=== PATIENT | female | born 2000 | race Caucasian/White ===

== ENCOUNTER 2020-02-12 16:56 | Emergency (ER) | payer MEDICAID, SELFPAY ==
[2020-02-12 16:57] VITALS: BP 159/93; PULSE 121; RESP 20; TEMP 36.9; O2SAT 95; BMI 38.2
[2020-02-12] MEDS: Albuterol 2.5 MG/3 ML VIAL.NEB. INHALATION (17:14)
[2020-02-12] MEDS: Ipratropium/Albuterol Sulfate 3 ML AMPUL.NEB INHALATION (17:14)
[2020-02-12 17:16] VITALS: PULSE 125; RESP 18
[2020-02-12] MEDS: predniSONE 20 MG Tablet 60 MG PO (17:16)
--- NOTE | 2020-02-12 17:22 | ED.VIS.GEN ---
History of Present Illness Chief Complaint: Asthma Informant: Patient Onset: Today Current Severity: Mild Maximum Severity: Moderate Narrative: Patient presents with asthma exacerbation. She states she was out in a field approximately 30 minutes prior to arrival and felt her lungs start to tighten and get wheezy. She did take a Tums. She states her asthma has been under very good control and her rescue inhalers are currently out of date. She denies fever or significant cough. - Past Medical History (1) Asthma Status: Chronic (2) Anxiety Status: Chronic Past Medical History - Allergies and Home Meds Allergies/Adverse Reactions: Allergies No Known Allergies Allergy (Verified 02/12/20 16:57) Primary Care Physician: Delta Gu MD [Primary Care Provider] - Prior records reviewed: Yes Smoking Status: Current every day smoker Review of Systems General: Denies: Chills, Fever Eyes: Denies: Visual changes - bilaterally ENT: Denies: Bilateral ear pain Cardiovascular: Reports: Chest pain - Lungs feel tight Respiratory: Reports: Dyspnea. Denies: Cough Gastrointestinal: Denies: Abdominal pain, Nausea, Vomiting, Diarrhea Musculoskeletal: Denies: Myalgias, Extremity Pain Skin: Denies: Rash Neurological: Denies: Headache Hematologic: Denies: Easy bruising, Easy bleeding Allergy: Denies: Uticaria Physical Exam Vital Signs/Narrative: Vital Signs Temp Pulse Resp BP Pulse Ox 02/12/20 17:16 111 H 18 02/12/20 16:57 98.4 F 121 H 20 H 159/93 H 95 Inital Vital Signs reviewed: Yes General: Well nourished, Well developed Head: Normocephalic ENT: Moist mucous membranes Neck: Supple Cardiovascular: Regular rhythm, Tachycardia Respiratory: - - Lung sounds slightly diminished. Expiratory wheezes noted worse in the right upper lobe. Abdomen: Soft, Nontender Extremities: Nontender Skin: Normal color Neurological: Alert, Oriented x3 Psychological: Normal affect Diagnostic/Tx/Re-eval - Medical Decision Making Patient was given a DuoNeb treatment followed by a single albuterol treatment. She was given 60 mg of p.o. prednisone. On repeat evaluation she reports feeling significantly improved. Lung sounds are clear. She will be given 4 additional days of steroids and a prescription for a new inhaler. ED Disposition - Plan for ED Patient: Disposition: Home or Assisted Living Diagnosis: Asthma exacerbation Instructions: ED REACTIVE AIRWAY DISEASE Adult Prescriptions: Prednisone [Deltasone] 40 mg PO DAILY #8 tab Transmission Status: Pending to [place] [id number] Albuterol Inhaler [Ventolin Hfa] 1 - 2 puff INHALATION Q4H PRN PRN #1 inhaler PRN Reason: Wheezing Transmission Status: Pending to [place] [id number] Referrals: Delta Gu MD [Primary Care Provider] - 3-5 Days if not improving
[2020-02-12 17:53] VITALS: PULSE 121; O2SAT 97
== END 2020-02-12 17:53 | disposition home or self-care (01) ==
PROVIDERS: Emergency Provider Emergency Medicine; PCP Family Medicine
DX: J45.901 Unspecified asthma with (acute) exacerbation (principal); F17.200 Nicotine dependence, unspecified, uncomplicated
CPT/HCPCS: 94640; 99283

== ENCOUNTER 2020-03-19 08:45 | Emergency (ER) | payer MEDICAID, SELFPAY ==
[2020-03-19 08:47] VITALS: BP 136/84; PULSE 112; RESP 16; TEMP 36.6; O2SAT 95; BMI 31.8
--- NOTE | 2020-03-19 09:01 | ED.DCSUM_ITS ---
History of Present Illness Chief Complaint: Bite Informant: Patient Onset: Today Current Severity: Moderate Maximum Severity: Moderate Narrative: Patient presents with multiple cat bites and scratches to her right upper e xtremity. Patient states she was trying to take a friend's cat to the vet when the cat bit and scratched her. She has numerous abrasions and bite diane on the right arm and one on the left hand, fifth finger. She believes the cat has had regular veterinary care. - Past Medical History (1) Anxiety Status: Chronic (2) Asthma Status: Chronic Past Medical History - Allergies and Home Meds Allergies/Adverse Reactions: Allergies No Known Allergies Allergy (Verified 03/19/20 08:47) Primary Care Physician: Delta Gu MD [Primary Care Provider] - Prior records reviewed: Yes Smoking Status: Current every day smoker Review of Systems General: Denies: Chills, Fever Eyes: Denies: Visual changes - bilaterally ENT: Denies: Bilateral ear pain Cardiovascular: Denies: Chest pain Respiratory: Denies: Dyspnea Gastrointestinal: Denies: Abdominal pain Musculoskeletal: Reports: Extremity Pain Skin: Reports: Abrasions, Wounds Neurological: Denies: Headache, Parasthesia Hematologic: Denies: Easy bruising, Easy bleeding Allergy: Denies: Uticaria Physical Exam Vital Signs/Narrative: Vital Signs Temp Pulse Resp BP Pulse Ox 03/19/20 08:47 97.9 F 112 H 16 136/84 H 95 Inital Vital Signs reviewed: Yes General: Well nourished, Well developed Head: Normocephalic ENT: Moist mucous membranes Cardiovascular: Regular rate, Regular rhythm Respiratory: No distress, CTA bilaterally Abdomen: Soft, Nontender Extremities: - - Patient has numerous linear abrasions and bite diane to the right forearm and distal upper arm. No significant active bleeding. There is a 3 cm linear abrasion on the left fifth finger. Neurovascular examination is normal. Neurological: Alert, Oriented x3, Normal Strength, Normal Sensation Psychological: Normal affect Diagnostic/Tx/Re-eval - Medical Decision Making Wound will be cleansed and dressed at this time. Patient be treated with a course of Augmentin, first dose given here. She is given wound care instructions. ED Disposition - Plan for ED Patient: Disposition: Home or Assisted Living Diagnosis: Cat bite Instructions: ED Bite Cat Prescriptions: Amox/Clavulanate Tablet [Augmentin Tablet] 875 mg PO Q12H #20 tab Transmission Status: Pending to [facility] - [place] - [id number] Referrals: Delta Gu MD [Primary Care Provider] - 1-2 Weeks
[2020-03-19] MEDS: Amox/Clavulanate 875 MG Tablet PO (09:05)
== END 2020-03-19 09:14 | disposition home or self-care (01) ==
LOC: ED 09:12
PROVIDERS: Emergency Provider Emergency Medicine; PCP Family Medicine
DX: S51.851A Open bite of right forearm, initial encounter (principal); S41.151A Open bite of right upper arm, initial encounter; S61.257A Open bite of left little finger without damage to nail, initial encounter; F17.200 Nicotine dependence, unspecified, uncomplicated; F41.9 Anxiety disorder, unspecified; J45.909 Unspecified asthma, uncomplicated; Z79.51 Long term (current) use of inhaled steroids; Z79.899 Other long term (current) drug therapy; W55.01XA Bitten by cat, initial encounter; Y93.89 Activity, other specified; Y92.89 Other specified places as the place of occurrence of the external cause; Y99.8 Other external cause status
CPT/HCPCS: 99282

== ENCOUNTER 2020-06-15 15:59 | Emergency (ER) | payer MEDICAID, SELFPAY ==
[2020-06-15 16:00] VITALS: BP 138/86; PULSE 97; RESP 17; TEMP 36.2; O2SAT 98; BMI 38.0
--- NOTE | 2020-06-15 16:10 | ED.DCSUM_ITS ---
- ER Visit Summary Date of Service: 06/15/20 Chief Complaint: [Back pain] History of Present Illness: The patient is a 19 F [presents to the emergency department complaint of back pain for the last 2 weeks. Patient denies any trauma. Patient states that she has frequent discomfort in her back related to knots in her back. Patient denies any pain rating down her legs. She denies weakness in extremities. She denies any change in bowel or bladder function. She denies urinary symptoms. She is had no fever. Patient worse with movement.] Physical Examination: [HEENT-PERRLA, EOMI. Cranial nerves II through XII grossly intact. TMs clear. Mucous membranes moist. No adenopathy. Cardiovascular-regular rate and rhythm without murmur or ectopy Lungs-clear to auscultation, chest wall stable without crepitus or subcu emphysema Abdomen-normoactive bowel sounds, soft, nontender, no rebound or rigidity, no peritoneal signs. Back exam-patient has diffuse tenderness over the lumbar paraspinal musculature bilaterally. Patient also has tenderness over the lumbar spine diffusely. Deep tendon reflexes are plus 2 out of 4 bilaterally at the patella and Achilles. Patient has normal L5 extension bilaterally. Patient has normal sensation to light touch. Extremities-intact ?4, normal range of motion, normal pulses, atraumatic] Test Results: [X-rays of lumbar spine obtained were normal.] Emergency Department Course and Treatment: [] Treatment Plan: [We will be given a prescription for Naprosyn, Flexeril, and a few [place] for severe pain. She is referred to her primary care physician for follow-up in 4 to 5 days.] Disposition: [Discharged home in stable condition] Impression: [Atraumatic back pain] This note was generated with [employer] dictation software. It may contain incorrect words, spelling, and punctuation that were not noted in review of the chart prior to signing ED Disposition - Plan for ED Patient: Referrals: Delta Gu MD [Primary Care Provider] -
--- NOTE | 2020-06-15 16:10 | RAD_ITS ---
STUDY: X-RAY - LUMBAR SPINE REASON FOR EXAM: Female, 19 years old. LOWER BACK PAIN X 2 WEEKS. NKI. WORSE WITH MOVEMENT. TECHNIQUE: 3 view(s) of the lumbar spine were obtained. COMPARISON: None FINDINGS: Normal lumbar lordosis. There is no substantial scoliosis. There is a normal alignment of the vertebrae. Normal vertebral bodies and endplates. Normal disc space heights. The soft tissue structures are unremarkable. RAD/Lumbar Spine 2 or 3 Views IMPRESSION: Normal x-ray examination of the lumbar spine. Electronically Signed: Fredis Gupta MD at 16:31 EDT , Service support ,
--- NOTE | 2020-06-15 16:12 | DCINST.ED_ITS ---
ED Disposition - Plan for ED Patient: Instructions: ED Spasm Back No Trauma Prescriptions: cycloBENZAPRine HCl [Flexeril] 10 mg PO TID PRN #20 tab PRN Reason: Muscle Spasm Prescription Printed Naproxen [Naprosyn] 500 mg PO BID PRN #20 tab Prescription Printed Hydrocodone Bitart/Apap 5-325 [[place] 5MG-325MG] 1 tab PO Q4H PRN PRN 2 Days #14 tab PRN Reason: Pain Prescription Printed Referrals: Delta Gu MD [Primary Care Provider] - 3-5 Days
[2020-06-15] MEDS: HYDROcodone Bitartrate/Apap 5/325 Tablet PO (16:42)
== END 2020-06-15 16:46 | disposition home or self-care (01) ==
PROVIDERS: Emergency Provider Emergency Medicine; PCP Family Medicine
DX: M54.5 Low back pain (principal)
CPT/HCPCS: 72100; 99283

== ENCOUNTER 2020-08-07 16:27 | Emergency (ER) | payer MEDICAID, SELFPAY ==
[2020-08-07 16:28] VITALS: BP 112/81; PULSE 118; RESP 16; TEMP 36.4; O2SAT 98; BMI 37.3
--- NOTE | 2020-08-07 17:30 | ED.DCSUM_ITS ---
History of Present Illness Chief Complaint: Sore Throat Informant: Patient Narrative: Patient is a 20-year-old female who presents to the emergency department for sore throat. She has had some swelling underneath her tongue and soreness there. She states that her sore throat is improving. Her initial symptoms started 1 week ago. She was concerned because her mom felt her throat and they felt that it was swollen. He has been able to swallow without issue. She been eating and drinking well. She denies any significant change in her voice. No fevers or chills. He has not been taking anything for this. Touching the area does make the pain worse. She currently rates it as moderate. No chest pain or shortness of breath. No cough. She denies any nausea/vomiting or diarrhea. No ear pain. She has had some mild headaches intermittently. No neck stiffness or rashes. She was seen a few days prior and had a negative strep test as well as a negative coronavirus swab. She went to urgent care today who told her they could not do anything for her. Past Medical History - Allergies and Home Meds Allergies/Adverse Reactions: Allergies No Known Allergies Allergy (Verified 08/07/20 16:28) Primary Care Physician: Delta Gu MD [Primary Care Provider] - 3-5 Days Prior records reviewed: Yes Smoking Status: Current every day smoker Review of Systems General: Denies: Chills, Fever, Sweats Eyes: Denies: Visual changes - bilaterally, Diplopia ENT: Reports: Sore throat. Denies: Left ear pain, Right ear pain, Rhinorrhea Cardiovascular: Denies: Chest pain, Palpitations Respiratory: Denies: Dyspnea, Cough, Dyspnea on exertion Gastrointestinal: Denies: Abdominal pain, Nausea, Vomiting, Diarrhea Genitourinary: Denies: Dysuria, Hematuria, Frequency Musculoskeletal: Denies: Back pain, Extremity Pain Skin: Denies: Rash, Wounds Neurological: Denies: Headache, Weakness, Numbness Physical Exam Vital Signs/Narrative: Vital Signs Temp Pulse Resp BP Pulse Ox 08/07/20 16:28 97.5 F L 118 H 16 112/81 H 98 Inital Vital Signs reviewed: Yes General: Well nourished, Well developed, No Acute Distress Head: Normocephalic, Atraumatic Eyes: Perrl, EOMI ENT: Moist mucous membranes, No rhinorrhea, TM's clear, - - No tonsillar exudates. No significant oral pharyngeal erythema. Uvula is midline. No appreciable abscess. Neck: Supple, - - Tenderness submandibular area bilaterally. No evidence of Onel's angina. Cervical lymphadenopathy present bilaterally. Cardiovascular: Regular rate, Regular rhythm, No murmurs Respiratory: No distress, CTA bilaterally, Chest nontender Abdomen: Soft, Nontender, Nondistended, Normal bowel sounds Back: Nontender, Normal Inspection Extremities: Nontender, No edema Skin: Normal color, No rash Neurological: Alert, Oriented x3, Cranial nerves II-XII grossly intact, Normal Strength, Normal Sensation Psychological: Normal affect, Normal Mood Diagnostic/Tx/Re-eval - Medical Decision Making Patient presents to the ED for tenderness and swelling under her jaw. She is getting over a sore throat currently. This is improving. No airway compromise on physical exam. No significant swelling. No evidence of Onel's angina. No evidence of infection except for some lymphadenopathy. Will recommend symptomatic treatment with Tylenol and ibuprofen. If this continues to get worse of the swelling becomes significant she is to return to the emerge depa rtment immediately. She understands and is agreeable this plan. She is to follow-up with her PCP. Warning signs and symptoms for which to return to the ED are reviewed with her. She understands and is agreeable with this plan. ED Disposition - Plan for ED Patient: Disposition: Home or Assisted Living Diagnosis: Pharyngitis Instructions: ED Pharyngitis Viral Referrals: Delta Gu MD [Primary Care Provider] - 3-5 Days
== END 2020-08-07 17:34 | disposition home or self-care (01) ==
LOC: ED 17:33
PROVIDERS: Emergency Provider Emergency Medicine
DX: J02.9 Acute pharyngitis, unspecified (principal); F17.200 Nicotine dependence, unspecified, uncomplicated
CPT/HCPCS: 99282

== ENCOUNTER → 2023-02-08 | Outpatient (CLI) | payer MEDICAID, SELFPAY ==
--- NOTE | 2023-02-08 12:30 | EKG12_ITS ---
Test Reason : Blood Pressure : / mmHG Vent. Rate : 107 BPM Atrial Rate : 107 BPM P-R Int : 118 ms QRS Dur : 080 ms QT Int : 352 ms P-R-T Axes : 053 144 029 degrees QTc Int : 469 ms Sinus tachycardia Otherwise normal ECG Confirmed by ROBERT RODRIGUES, ELLI ([id number]), editor school photograph YOUNG JIMENES ([id number]) on 02/09/2023 11:40:08 A M Referred By: Lisa Cote Confirmed By:JUDY JONES MD
[2023-02-08 13:41] LABS: Absolute Lymphocyte Count 2.89 X10^3/uL (0.83-4.51); Absolute Neutrophil Count 3.4 X10^3/uL (2.0-7.7); Basophil# 0.06 X10^3/uL; Basophil% 0.9 % (0-1); Eosinophil# 0.14 X10^3/uL; Hematocrit 43.4 % (37-47); Hemoglobin 14.6 g/dL (12.0-15.0); Lymphocyte # 2.89 X10^3/ul (0.83-4.51); Lymphocyte % 41.2 % (19-41); Mean Corp Hgb Conc 33.6 g/dL (32-36); Mean Corpuscular Hgb 29.6 pg (27.0-32.0); Mean Corpuscular Volume 87.9 fL (81-99); Mean Platelet Vol. 9.7 fl (6.2-12.0); Monocyte# 0.48 X10^3/uL; Monocyte% 6.8 % (0-10); NRBC Flagged by Analyzer 0 % (0-5); Neutrophil # 3.43 X10^3/uL (2.7-7.7); Platelet Count 325 K/mm3 (150-450); RBC Distribution Width SD 41.7 fl (35.1-43.9); Red Blood Count 4.94 M/mm3 (4.2-5.4)
[2023-02-08 14:10] LABS: Vitamin B12 291 pg/mL (211-911); Vitamin D,25 Hydroxy 30.6 ng/mL
[2023-02-08 14:24] LABS: ALB/GLOB Ratio 1.1 RATIO (0.9-2.4); AST(SGOT) 18 U/L (15-37); Alanine Aminotransfer ALT/SGPT 33 U/L (13-56); Albumin, Serum 3.8 g/dL (3.2-5.0); Alkaline Phosphatase 55 U/L (45-117); Anion Gap 7 (5-15); BUN 7 mg/dL (7-18); BUN/Creat Ratio 10.5 RATIO (10-20); Bilirubin, Direct 0.12 mg/dL (0.00-0.30); Chloride 109 mmol/L (98-107); Cholesterol 199 mg/dL (200); Creatinine, Serum 0.67 mg/dL (0.55-1.02); EST Glomerular Filtration Rate 115 mL/min (>60); Est Glom Filt Rate - Afr Amer 139 mL/min (>60); Ferritin 21 ng/mL (8-252); Free T3 3.1 pg/mL (2.18-3.98); Globulin 3.4 g/dL (2.2-4.2); Glucose 97 mg/dL (74-106); High Density Lipoprotein 35 mg/dL; Iron 110 ug/dL (50-170); Iron Binding Capacity,Total 345 ug/dL (250-450); Potassium 3.6 mmol/L (3.5-5.1); Protein, Total 7.2 g/dL (6.4-8.2); Sodium Level 139 mmol/L (136-145); Triglycerides 261 mg/dL; Very Low Density Lipoprotein 52 mg/dL (5-40)
== END | disposition home or self-care (01) ==
PROVIDERS: PCP Student in an Organized Health Care Education/Training Program; Referring Provider Nurse Practitioner Psychiatric/Mental Health; Visit Provider Nurse Practitioner Psychiatric/Mental Health
DX: R53.83 Other fatigue (principal); Z79.899 Other long term (current) drug therapy
CPT/HCPCS: 36415; 80053; 80061; 82248; 82306; 82607; 82728; 82746; 83036; 83540; 83550; 84439; 84443; 84481; 85025; 93005

== ENCOUNTER → 2023-04-07 | Outpatient (CLI) | payer MEDICAID, SELFPAY | END | disposition home or self-care (01) | LOC: SL 20:23 | PROVIDERS: PCP Student in an Organized Health Care Education/Training Program; Referring Provider Student in an Organized Health Care Education/Training Program; Visit Provider Student in an Organized Health Care Education/Training Program | DX: G47.10 Hypersomnia, unspecified (principal) | CPT/HCPCS: 95810 ==